=== PATIENT | male | born 1970 | race Caucasian/White ===

== ENCOUNTER 2016-10-17 10:51 | Emergency (ER) | payer BC ==
[2016-10-17 13:31] VITALS: BP 143/87
== END 2016-10-17 13:31 | disposition home or self-care (01) ==
LOC: ED 10:51
DX: S43.004A Unspecified dislocation of right shoulder joint, initial encounter (principal); X58.XXXA Exposure to other specified factors, initial encounter; Y99.8 Other external cause status; Y93.67 Activity, basketball; Y92.89 Other specified places as the place of occurrence of the external cause
CPT/HCPCS: J2704; J3010; J3490; Q0092